=== PATIENT | male | born 1970 | race Caucasian/White ===

== ENCOUNTER 2019-02-02 13:25 | Emergency (ER) | payer MEDICAID ==
[~2019-02-02] VITALS: Ht 170.2 cm; Wt 81.6 kg
--- NOTE | 2019-02-02 13:39 | NUR ---
Patient to ER bed 7 to gown for evaluation. Side rails up.
[2019-02-02 13:40] VITALS: BP_SYST 164
--- NOTE | 2019-02-02 13:40 | NUR ---
Pt complains of dizziness and being off balance for the last week. 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 Pt states he has a lack of appetite. Pt denies vomiting but does complain of nausea and a headache intermittently throughout the week. No other injuries/complaints per patient or noted.
--- NOTE | 2019-02-02 14:05 | NUR ---
ER Dr. Flores at bedside examining patient.
[2019-02-02] MEDS ORDERED: METOPROLOL TARTRATE 5 MG/5 ML VIAL IVP ONE (14:15)
[2019-02-02] MEDS ORDERED: NACL 0.9% 1,000 ML IV ONE (14:15)
[2019-02-02] MEDS ORDERED: ACETAMINOPHEN 500 MG TABLET PO ONE (14:15)
[2019-02-02 14:40] LABS: BASOPHILS # (AUTO) 0.1 K/uL (0.0-0.2); EOSINOPHILS % (AUTO) 0.4 % (0.0-4.0); HEMATOCRIT 41.9 % (36-54); HEMOGLOBIN 14.4 g/dL (14.0-18.0); LYMPHOCYTES # (AUTO) 1.9 K/uL (1.0-5.5); LYMPHOCYTES % (AUTO) 37.9 % (20.5-51.5); MEAN CORPUSCULAR HEMOGLOBIN 31 pg (27-31); MEAN CORPUSCULAR HGB CONC 35 % (32-36); MEAN CORPUSCULAR VOLUME 90 fL (79.0-98.0); MONOCYTES # (AUTO) 0.3 K/uL (0.0-1.0); MONOCYTES % (AUTO) 6.5 % (1.7-9.3); NEUTROPHILS # (AUTO) 2.8 K/uL (1.8-7.7); NEUTROPHILS % (AUTO) 54.2 % (40.0-70.0); PLATELET COUNT (AUTO) 190 K/uL (130-430); RED BLOOD CELL COUNT(AUTO) 4.67 MIL/uL (4.2-6.2); WHITE BLOOD COUNT (AUTO) 5.1 K/uL (4.8-10.8)
[2019-02-02 14:50] LABS: ANION GAP 6 (5-15); CHLORIDE 104 mmol/L (98-107); CREATININE 0.73 mg/dL (0.55-1.30); GLUCOSE 89 mg/dL (70-99); POTASSIUM 3.4 mmol/L (3.5-5.1); SODIUM SERUM 137 mmol/L (136-145); UREA NITROGEN, BLOOD 11 mg/dL (8-21)
[2019-02-02 14:51] LABS: PROTHROMBIN TIME 10.3 SECS (9.5-12.5)
[2019-02-02 14:52] LABS: GFR AFRICAN AMERICAN 146 mL/min (>90)
[2019-02-02 15:06] LABS: ALANINE AMINOTRANSFERASE 39 U/L (12-78); ALBUMIN 3.9 g/dL (3.4-4.8); ASPARTATE AMINOTRANSFERASE 29 U/L (10-37); FREE T4 (FREE THYROXINE) 0.9 ng/dL (0.6-1.6); TOTAL BILIRUBIN 0.4 mg/dL (0.0-1.0)
[2019-02-02 15:07] LABS: ALCOHOL, BLOOD < 3 mg/dL (<10)
[2019-02-02 15:40] VITALS: BP_SYST 149
--- NOTE | 2019-02-02 15:40 | NUR ---
Patient given written and verbal discharge instructions and verbalizes understanding. ER MD discussed with patient the results and treatment provided. Patient in stable condition. ID arm band removed. Rx of zero given. Patient educated on pain management and to follow up with PMD. Pain Scale 0/10. Opportunity for questions provided and answered. Medication side effect fact sheet provided.
[2019-02-02 15:47] LABS: BARBITURATE, URINE NEGATIVE (NEG <=200); BENZODIAZEPINE, URINE NEGATIVE (NEG <=150); CANNABINOID, URINE NEGATIVE (NEG <=50); COCAINE, URINE NEGATIVE (NEG <=150); METHAMPHETAMINES SCREEN,URINE NEGATIVE (NEG <=500); OPIATE, URINE NEGATIVE (NEG <=100); PHENCYCLIDINE SCREEN,URINE NEGATIVE (NEG <=25); UR TRICYCLIC ANTIDEPRESSANTS NEGATIVE (NEG <=300); URINE AMPHETAMINE NEGATIVE (NEG <=500); URINE METHADONE NEGATIVE (NEG <=200); URINE OXYCODONE SCREEN NEGATIVE (NEG <=100); URINE PROPOXYPHENE SCREEN NEGATIVE (NEG <=300)
== END 2019-02-02 15:40 | disposition home or self-care (01) ==
LOC: SED 13:25
DX: R53.1 Weakness (principal); R03.0 Elevated blood-pressure reading, without diagnosis of hypertension; Z90.89 Acquired absence of other organs
CPT/HCPCS: 36415; 70450; 71045; 74018; 80053; 80307; 83605; 83880; 84439; 84484; 85025; 85610; 87040; 93005; 96361; 96374; 99284; G0482; J3490; J7030

== ENCOUNTER 2019-04-16 10:32 | Emergency (ER) | payer MEDICAID ==
[~2019-04-16] VITALS: Ht 172.7 cm; Wt 79.4 kg
[2019-04-16 11:00] VITALS: BP_SYST 138
--- NOTE | 2019-04-16 14:10 | NUR ---
Patient to ER HW bed 1 to gown for evaluation. Side rails up.
--- NOTE | 2019-04-16 14:20 | NUR ---
Patient presented to ER with C/O back pain. Patient A&Ox4, afebrile, skin pink & warm, cap refill <3, denies N/V/D, Pain 8/10, ambulatory to ER, denies N/V/D. Patient states back pain x1week, patient injured back 1 week ago while moving from home. Patient states pain became severe today prompting ER visir, patient denies [facility] HX.
--- NOTE | 2019-04-16 14:25 | NUR ---
MSE completed by myself.
[2019-04-16] MEDS ORDERED: KETOROLAC TROMETHAMINE 60 MG/2 ML VIAL IM ONE (14:30)
[2019-04-16 14:55] VITALS: BP_SYST 138
--- NOTE | 2019-04-16 14:55 | NUR ---
Patient given written and verbal discharge instructions and verbalizes understanding. ER MD discussed with patient the results and treatment provided. Patient in stable condition. ID arm band removed. Rx of MIRALAX, MOTRIN, SOMA given. Patient educated on pain management and to follow up with PMD. Pain Scale 0/10. Opportunity for questions provided and answered. Medication side effect fact sheet provided.
== END 2019-04-16 14:55 | disposition home or self-care (01) ==
LOC: SED 10:32
DX: S39.012A Strain of muscle, fascia and tendon of lower back, initial encounter (principal); I10 Essential (primary) hypertension; R03.0 Elevated blood-pressure reading, without diagnosis of hypertension; K59.09 Other constipation; Y93.89 Activity, other specified; Y92.89 Other specified places as the place of occurrence of the external cause; Y99.8 Other external cause status
CPT/HCPCS: 72100; 96372; 99283; J1885

== ENCOUNTER 2019-08-20 13:29 | Emergency (ER) | payer MEDICAID ==
[~2019-08-20] VITALS: Ht 172.7 cm; Wt 79.4 kg
[2019-08-20 14:55] VITALS: BP_SYST 181
--- NOTE | 2019-08-20 15:02 | NUR ---
Patient to ER bed 04 to gown for evaluation. Side rails up. Report given to KUMAR WHITFIELD
--- NOTE | 2019-08-20 15:15 | NUR ---
PT CAME TO ER FOR FLU LIKE SYMPTOMS AND BURNING IN THROAT. HE IS RESTING IN [place] ON MONITOR AT THIS TIME.
--- NOTE | 2019-08-20 15:18 | NUR ---
ER at bedside examining patient.
[2019-08-20 15:22] LABS: STREPTOCOCCUS A SCREEN (RAPID) NEGATIVE (NEGATIVE)
[2019-08-20 15:45] VITALS: BP_SYST 165
--- NOTE | 2019-08-20 15:45 | NUR ---
Patient given written and verbal discharge instructions and verbalizes understanding. ER MD discussed with patient the results and treatment provided. Patient in stable condition. ID arm band removed. Rx of BROMFED AND CEPACOL given. Patient educated on pain management and to follow up with PMD. Pain Scale . Opportunity for questions provided and answered. Medication side effect fact sheet provided.
== END 2019-08-20 15:45 | disposition home or self-care (01) ==
LOC: SED 13:29
DX: J11.1 Influenza due to unidentified influenza virus with other respiratory manifestations (principal)
CPT/HCPCS: 36415; 86403; 86710; 87081; 99283

== ENCOUNTER 2020-03-24 11:37 | Emergency (ER) | payer MEDICAID ==
[~2020-03-24] VITALS: Ht 170.2 cm; Wt 80.7 kg
[2020-03-24 11:44] VITALS: BP_SYST 159
[2020-03-24] MEDS ORDERED: LIDOCAINE 1% 10 MG/ML, 20 ML MDV INJ ONE (12:15)
[2020-03-24 12:36] VITALS: BP_SYST 159
== END 2020-03-24 12:37 | disposition home or self-care (01) ==
LOC: SED 11:37
DX: M67.432 Ganglion, left wrist (principal)
CPT/HCPCS: 20605; 99283; J2001; 99284